=== PATIENT | male | born 1995 | race Hispanic/Latino ===

== ENCOUNTER 2019-07-13 07:12 | Inpatient (IN) | payer SELFPAY ==
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
[2019-07-13 07:48] LABS: #Eosinphils 0.1 thou/uL (0.0-0.7); #Lymphocytes 1.9 thou/uL (1.20-3.40); #Monocytes 0.4 thou/uL (0.11-0.59); #Neutrophils 4.9 thou/uL (1.40-6.50); %Basophils 0.1 % (0.0-1.0); %Lymphocytes 26.6 % (21.0-51.0); %Monocytes 5.4 % (0.0-10.0); %Neutrophils 66.8 % (42.0-75.0); Hemoglobin 13.5 g/dL (14.0-18.0); Mean Corpuscular HGB CONC 35.3 g/dL (32.0-36.0); Mean Corpuscular Hemoglobin 30.7 pg (27.0-31.0); Mean Corpuscular Volume 87.1 fL (78.0-98.0); Mean Platelet Volume 8.8 fL (7.4-10.4); Platelet Count 205 thou/uL (130-400); RBC Distribution Width 12.6 % (11.5-14.5); Red Blood Cell (RBC) Count 4.39 mill/uL (4.70-6.10); White Blood Cell (WBC) Count 7.3 thou/uL (4.8-10.8)
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
[2019-07-13 07:55] LABS: INR-International Normal Ratio 0.9; PTT 27.5 SEC (22.9-36.1); Prothrombin Time 12.1 SEC (12.0-14.7)
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
[2019-07-13 08:06] LABS: ALT (SGPT) 28 U/L (8-55); AST (SGOT) 51 U/L (5-34); Albumin 4.8 g/dL (3.5-5.0); Alcohol 204 mg/dL (Less than 10); Alkaline Phosphatase 140 U/L (40-110); Anion Gap 16 mmol/L (10-20); BUN (Urea Nitrogen) 9 mg/dL (8.9-20.6); Bilirubin, Total 0.3 mg/dL (0.2-1.2); Calc. Creatinine Clearance 0 mL/min (70-130); Calcium 8.9 mg/dL (7.8-10.44); Carbon Dioxide 21 mmol/L (22-29); Chloride 110 mmol/L (98-107); Estimated GFR-MDRD Greater than 90; Globulin 2.9 g/dL (2.4-3.5); Glucose 98 mg/dL (70-105); Protein, Total 7.7 g/dL (6.0-8.3); Sodium 143 mmol/L (136-145)
[2019-07-13] MEDS ORDERED: Ondansetron PF 4 MG/2 ML Vial ONE (08:17)
[2019-07-13] MEDS ORDERED: Adacel (T-DAP) 0.5 ML SYRINGE ONE (08:17)
[2019-07-13] MEDS ORDERED: Dextrose 5% in Water 1,000 ML IV PRN (08:38)
[2019-07-13] MEDS ORDERED: Dextrose 50% Abboject 50 ML SYRINGE SLOW IVP PRN (08:38)
[2019-07-13] MEDS ORDERED: Morphine 2 MG/ML SYRINGE SLOW IVP PRN (08:38)
[2019-07-13] MEDS ORDERED: hydrALAZINE 20 MG/ML VIAL SLOW IVP PRN (08:38)
[2019-07-13] MEDS ORDERED: Ondansetron PF 4 MG/2 ML Vial IVP PRN (08:38)
[2019-07-13] MEDS ORDERED: Ondansetron ODT 4 MG TAB PO PRN (08:38)
[2019-07-13 09:30] LABS: Acetaminophen Less than 6.0 mcg/mL (10.0-30.0); Alcohol 167 mg/dL (Less than 10); Salicylate Less than 8.0 mg/dL (15.0-30.0)
[2019-07-13 09:31] LABS: CK (CPK) 439 U/L (30-200); Lactic Acid 2.4 mmol/L (0.5-2.2); Magnesium 2.2 mg/dL (1.6-2.6)
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
[2019-07-13 10:47] LABS: Bilirubin Negative (Negative); Blood, Urine Trace (Negative); Glucose, Urine (Dipstick) Negative (Negative); Leukocyte Negative (Negative); Nitrite Negative (Negative); Protein, Urine (Dipstick) Negative (Neg-Trace); Urobilinogen 0.2 mg/dL (Less than 2)
[2019-07-13 10:49] LABS: Bacteria/HPF None Seen HPF (None Seen); Clarity Clear (Clear); RBC/HPF 0-3 HPF (0-3); Squamous Epithelial None Seen HPF (0-3); WBC/HPF 0-3 HPF (0-3)
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
[2019-07-13] MEDS ORDERED: Iopamidol-370 76% 500 ML 1 ML ONE (13:55)
[2019-07-13 16:49] VITALS: BMI 18.9
[2019-07-13 16:51] LABS: Amphetamine Not Detected (NotDetected); Barbiturates Screen Not Detected (NotDetected); Benzodiazepine Screen Not Detected (NotDetected); Cocaine Metabolite Screen Not Detected (NotDetected); Medtox Control Line Valid? VALID (VALID); Medtox Reader # READER 4; Methadone Not Detected (NotDetected); Methamphetamine Not Detected (NotDetected); Opiate Screen Not Detected (NotDetected); Oxycodone Screen Not Detected (NotDetected); Phencyclidine (PCP) Not Detected (NotDetected); THC/Cannabinoid Screen Not Detected (NotDetected); Tricyclic Screen Not Detected (NotDetected)
[2019-07-13] MEDS ORDERED: Thiamine HCl 200 MG/2 ML VIAL SLOW IVP SCH (17:00)
[2019-07-13] MEDS: Sodium Chloride 0.9% 1,000 ML IV SCH ×2 (17:39→21:50)
[2019-07-13] MEDS: Bacitracin 1 PK TOP SCH (17:39)
[2019-07-13] MEDS: Famotidine/PF 20 mg/2ml Vial SLOW IVP SCH ×2 (17:40→20:26)
[2019-07-13] MEDS: Polyethylene Glycol 3350 17 GM Packet PO SCH (17:40)
[2019-07-13] MEDS: Acetaminophen 500 MG TAB PO SCH (18:16)
[2019-07-13] MEDS: Senokot S 8.6-50 MG TAB PO SCH (20:26)
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
[2019-07-13] MEDS: Oxazepam 10 MG CAP PO SCH (21:50)
[2019-07-13] MEDS: Ciprofloxacin HCL/Dexameth Otic Drops 7.5 ml Bottle L EAR SCH (21:50)
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
[2019-07-14] MEDS: Acetaminophen 500 MG TAB PO SCH ×4 (00:36→17:55)
[2019-07-14 04:29] LABS: Band 4 % (5-11); Eosinophils 2 % (0-10); Hemoglobin 12.6 g/dL (14.0-18.0); Lymphocytes 25 % (21-51); MDiff Complete? YES; Mean Corpuscular HGB CONC 34.3 g/dL (32.0-36.0); Mean Corpuscular Hemoglobin 30.2 pg (27.0-31.0); Mean Platelet Volume 8.6 fL (7.4-10.4); Monocytes 8 % (0-10); Neutrophil 60 % (42-75); Platelet Count 184 thou/uL (130-400); Platelet Morphology Comment Appears Adequate; RBC Distribution Width 12.7 % (11.5-14.5); Reactive Lymphocytes 1 % (0-10); Red Blood Cell (RBC) Count 4.16 mill/uL (4.70-6.10); White Blood Cell (WBC) Count 7.6 thou/uL (4.8-10.8)
[2019-07-14 04:31] LABS: Phosphorus 3.6 mg/dL (2.3-4.7)
[2019-07-14 04:32] LABS: Anion Gap 11 mmol/L (10-20); BUN (Urea Nitrogen) 11 mg/dL (8.9-20.6); Calc. Creatinine Clearance 113 mL/min (70-130); Calcium 8.7 mg/dL (7.8-10.44); Carbon Dioxide 25 mmol/L (22-29); Chloride 107 mmol/L (98-107); Estimated GFR-MDRD Greater than 90; Glucose 93 mg/dL (70-105); Potassium 3.8 mmol/L (3.5-5.1); Sodium 139 mmol/L (136-145)
[2019-07-14] MEDS: Oxazepam 10 MG CAP PO SCH ×3 (06:15→21:12)
[2019-07-14] MEDS: Sodium Chloride 0.9% 1,000 ML IV SCH (06:15)
[2019-07-14] MEDS: Ciprofloxacin HCL/Dexameth Otic Drops 7.5 ml Bottle L EAR SCH ×2 (07:53→21:12)
[2019-07-14] MEDS: Bacitracin 1 PK TOP SCH (07:53)
[2019-07-14] MEDS: Polyethylene Glycol 3350 17 GM Packet PO SCH (07:54)
[2019-07-14] MEDS: Senokot S 8.6-50 MG TAB PO SCH ×2 (07:54→21:12)
[2019-07-14] MEDS: Famotidine/PF 20 mg/2ml Vial SLOW IVP SCH ×2 (07:54→21:12)
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
[2019-07-14] MEDS ORDERED: FLU VACC QS2019-20(6MOS UP)/PF 60 MCG/0.5 ML SYRINGE IM ONE (09:00)
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
--- NOTE | 2019-07-14 10:24 | RAD ---
Right ankle 3 views HISTORY: Right ankle pain. FINDINGS: Ankle mortise and talar dome are intact. No acute fracture, dislocation, or evidence of monica nt effusion. IMPRESSION: Normal exam.
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
[2019-07-15] MEDS: Acetaminophen 500 MG TAB PO SCH ×3 (00:24→11:19)
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
[2019-07-15] MEDS: Oxazepam 10 MG CAP PO SCH (06:11)
[2019-07-15] MEDS ORDERED: Multivitamin W/ Minerals 1 TAB PO SCH (09:00)
[2019-07-15] MEDS ORDERED: Thiamine 100 MG TAB PO SCH (09:00)
[2019-07-15] MEDS: Famotidine/PF 20 mg/2ml Vial SLOW IVP SCH (09:26)
[2019-07-15] MEDS: Polyethylene Glycol 3350 17 GM Packet PO SCH (09:26)
[2019-07-15] MEDS: Senokot S 8.6-50 MG TAB PO SCH (09:26)
[2019-07-15] MEDS: Ciprofloxacin HCL/Dexameth Otic Drops 7.5 ml Bottle L EAR SCH (09:26)
[2019-07-15] MEDS: Bacitracin 1 PK TOP SCH (10:28)
[2019-07-15 11:32] VITALS: BP 108/64; TEMP 97.8
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
== END 2019-07-15 14:22 | disposition home or self-care (01) | DRG 86 ==
LOC: ERS 07:12 → ERHOLD 10:33 → EDBD 10:33 → IMCU/EMU 15:59 → SURG A 07-14 13:48
PROVIDERS: ADMIT Specialist; ATTEND Specialist
DX: S06.6X1A Traumatic subarachnoid hemorrhage with loss of consciousness of 30 minutes or less, initial encounter (principal); S52.611A Displaced fracture of right ulna styloid process, initial encounter for closed fracture; F10.129 Alcohol abuse with intoxication, unspecified; S06.5X1A Traumatic subdural hemorrhage with loss of consciousness of 30 minutes or less, initial encounter; R40.2123 Coma scale, eyes open, to pain, at hospital admission; R40.2353 Coma scale, best motor response, localizes pain, at hospital admission; S00.03XA Contusion of scalp, initial encounter; G89.11 Acute pain due to trauma; Y90.7 Blood alcohol level of 200-239 mg/100 ml; S60.511A Abrasion of right hand, initial encounter; V49.88XA Car occupant (driver) (passenger) injured in other specified transport accidents, initial encounter; Y93.89 Activity, other specified; Y92.89 Other specified places as the place of occurrence of the external cause; R40.2223 Coma scale, best verbal response, incomprehensible words, at hospital admission; R40.2414 Glasgow coma scale score 13-15, 24 hours or more after hospital admission; S90.01XA Contusion of right ankle, initial encounter
CPT/HCPCS: 36415; 36416; 70450; 70486; 71260; 72125; 74177; 80048; 80053; 80306; 80307; 81003; 81015; 82550; 83605; 83735; 84100; 85025; 85610; 85730; 90715; G0390; J2405; J3411; Q9967; S0028